=== PATIENT | female | born 1950 | race American Indian/Alaskan Native ===

== ENCOUNTER 2016-10-14 16:38 | Emergency (ER) | payer MEDICARE ==
[2016-10-14] MEDS ORDERED: BACTRIM DS PO ONE (19:50)
[2016-10-14] MEDS ORDERED: FIORICET PO ONE (19:50)
[2016-10-14] MEDS ORDERED: MOTRIN PO ONE (19:50)
--- NOTE | 2016-10-14 20:16 | Emergency Department Report ---
HPI - General Chief Complaint: Urogenital-Female Time Seen by Provider: 10/14/16 19:31 - HPI HPI: She is a 66-year-old female presents to ED complaining of pain with urination for the past 3 days. Patient states when she went to the bathroom earlier today and while she certainly tinged blood after urinating She denies fever/chills/nausea/vomiting/vaginal discharge/diarrhea/segment, chest pain/urinary frequency or any other problems. ED Past Medical Hx - Past Medical History Hx Hypertension: Yes Hx Diabetes: Yes Hx Asthma: Yes - Surgical History Past Surgical History?: Yes Additional Surgical History: back surgery, back fusion, appendectomy - Social History Smoking Status: Never Smoker Substance Use Type: None - Medications Home Medications: Home Medications Medication Instructions Recorded Confirmed Last Taken Type Phenazopyridine [Pyridium] 200 mg PO BID #6 tab 10/14/16 Unknown Rx Sulfamethoxazole/Trimethoprim 1 each PO ONCE #12 tablet 10/14/16 Unknown Rx [Bactrim DS TAB] ED Review of Systems ROS: Stated complaint: POSS UTI Other details as noted in HPI Constitutional: denies: chills, fever Eyes: denies: eye pain, eye discharge, vision change ENT: denies: ear pain, throat pain Respiratory: denies: cough, shortness of breath, wheezing Cardiovascular: denies: chest pain, palpitations Endocrine: no symptoms reported Gastrointestinal: denies: abdominal pain, nausea, vomiting, diarrhea, constipation, hematemesis Genitourinary: dysuria, hematuria. denies: urgency, frequency, discharge Musculoskeletal: denies: back pain, joint swelling, arthralgia Skin: denies: rash, lesions Neurological: denies: headache, weakness, paresthesias Psychiatric: denies: anxiety, depression Hematological/Lymphatic: denies: easy bleeding, easy bruising Physical Exam - Physical Exam Vital Signs: Vital Signs 10/14/16 17:21 Temperature 98.6 F Pulse Rate 101 H Respiratory 16 Rate Blood Pressure 142/87 O2 Sat by Pulse 100 Oximetry Physical Exam: GENERAL: Alert and oriented x3, no apparent distress, Normal Gait, atraumatic. HEAD: Head is normocephalic and a-traumatic. EYES: Extra ocular muscles are intact. Pupils are equal, round, and reactive to light and accommodation. LUNGS: Symetrical with respiration, No wheezing, no rales or crackles, CTAB. HEART: S1, S2 present, regular rate and rhythm without murmur, no rubs, no gallops. ABDOMEN: No organomegaly was noted,Positive bowel sounds, soft, and non- distended. . Nontender to palpation on all Quadrants, NO CVA tenderness. SKIN: Warm and dry, No lesions, No ulceration or induration present. ED Course Vital Signs 10/14/16 17:21 Temperature 98.6 F Pulse Rate 101 H Respiratory 16 Rate Blood Pressure 142/87 O2 Sat by Pulse 100 Oximetry ED Medical Decision Making - Medical Decision Making 66 jennie presents for urine check infection. Course: Patient administered 1 tablet of Bactrim ED and Motrin for pain. Urinalysis ordered. Urinalysis show positive leukocyte esterase, increased white blood count Discussed findings with patient. Discussed with patient to follow up with primary care physician. Discussed the patient took medication as prescribed and completed all angulo. Sounds are normal patient is in no acute distress. Critical care attestation.: If time is entered above; I have spent that time in minutes in the direct care of this critically ill patient, excluding procedure time. ED Disposition Clinical Impression: Dysuria UTI (urinary tract infection) Qualifiers: Urinary tract infection type: acute cystitis Hematuria presence: with hematuria Qualified Code(s): N30.01 - Acute cystitis with hematuria Disposition: DISCHARGED TO HOME OR SELFCARE Is pt being admited?: No Does the pt Need Aspirin: No Condition: Stable Instructions: Urinary Tract Infection in Women (ED), Dysuria (ED) Prescriptions: Phenazopyridine [Pyridium] 200 mg PO BID #6 tab Sulfamethoxazole/Trimethoprim [Bactrim DS TAB] 1 each PO ONCE #12 tablet Referrals: PRIMARY CARE, [Primary Care Provider] - 3-5 Days [facility] [Outside] - 3-5 Days [facility] [Outside] - 3-5 Days Forms: Accompanied Note, Work/School Release Form(ED)
[2016-10-14 20:47] LABS: Bilirubin,Urine NEG (Negative); Blood,Urine LG (Negative); Ketones,Urine TR mg/dL (Negative); Leukocyte Esterase,Urine MOD (Negative); Mucus,Urine 3+ /HPF; Nitrite,Urine POS (Negative)
[2016-10-14 20:51] LABS: RBC,Urine > 182.0 /HPF (0.0-6.0); WBC,Urine > 182.0 /HPF (0.0-6.0)
[2016-10-15 05:11] VITALS: BP 173/82
== END 2016-10-14 21:05 | disposition home or self-care (01) ==
LOC: ED 16:38
DX: R30.0 Dysuria (principal); N30.01 Acute cystitis with hematuria; E11.9 Type 2 diabetes mellitus without complications; J45.909 Unspecified asthma, uncomplicated; I10 Essential (primary) hypertension
CPT/HCPCS: 81001; 87076; 87086; 87186; 99283